=== PATIENT | female | born 1965 ===

== ENCOUNTER 2016-11-21 10:15 | Emergency (ER) | payer BC ==
[2016-11-21 11:02] LABS: BASO % 0.2 % (0.0-2.0); EOS % 0.2 % (0.0-4.0); HEMATOCRIT 44.1 % (34.0-47.0); LYMPH # 0.7 K/uL (1.0-4.3); LYMPH % 4.4 % (20.0-40.0); MEAN CELL VOLUME 69.7 fL (81.0-99.0); MEAN CORPUSCULAR HEMOGLOBIN 21.9 pg (27.0-31.0); MEAN CORPUSCULAR HGB CONC 31.5 g/dL (33.0-37.0); MONO # 0.6 K/uL (0.0-0.8); PLATELET COUNT 221 K/uL (130-400); RED CELL DISTRIBUTION WIDTH 14.7 % (11.5-14.5); WHITE BLOOD COUNT 15.1 K/uL (4.8-10.8)
[2016-11-21 11:04] LABS: CHLORIDE 102 mmol/L (98-107); SODIUM 142 mmol/L (132-148)
[2016-11-21 11:05] LABS: POTASSIUM 3.8 mmol/L (3.6-5.2)
[2016-11-21 11:07] LABS: ALB/GLOB RATIO 1.4 (1.0-2.1); ALKALINE PHOSPHATASE 119 U/L (38-126); ALT/SGPT 116 U/L (9-52); AST/SGOT 93 U/L (14-36); BILIRUBIN,TOTAL 0.9 mg/dL (0.2-1.3); BLOOD UREA NITROGEN 12 mg/dL (7-17); CALCIUM 9.1 mg/dl (8.6-10.4); CARBON DIOXIDE 24 mmol/L (22-30); GFR AFRICAN-AMERICAN > 60; GLUCOSE,RANDOM 103 mg/dL (65-105)
[2016-11-21 11:20] LABS: NEUTROPHIL 87 % (50-75); TOTAL CELLS COUNTED 100
--- NOTE | 2016-11-21 12:05 | C.PDOC ---
History Of Present Illness 51 y/o female presents to the ED with complains of nausea and several episodes of vomiting and diarrhea since this morning. Pt checked her blood pressure afterward, and states it was high. She took her HTN medications but initially vomited them up; however she then retook them and has been able to keep them down. Pt denies chest pain, SOB, fever, dysuria/hematuria, cough. Time Seen by Provider: 11/21/16 10:24 Chief Complaint (Nursing): High Blood Pressure History Per: Patient History/Exam Limitations: no limitations Onset/Duration Of Symptoms: Hrs Current Symptoms Are (Timing): Still Present Severity: Mild Recent travel outside of the [place]: No Past Medical History Reviewed: Historical Data, Nursing Documentation, Vital Signs Vital Signs: Last Vital Signs Temp 98.9 F 11/21/16 16:35 Pulse 74 11/21/16 16:35 Resp 19 11/21/16 16:35 BP 142/77 11/21/16 16:35 Pulse Ox 99 11/21/16 16:40 - Medical History PMH: HTN Family History: States: No Known Family Hx - Social History Hx Alcohol Use: No Hx Substance Use: No - Immunization History Hx Tetanus Toxoid Vaccination: No Hx Influenza Vaccination: No Review Of Systems Except As Marked, All Systems Reviewed And Found Negative. Constitutional: Negative for: Fever Cardiovascular: Negative for: Chest Pain Respiratory: Negative for: Cough, Shortness of Breath Gastrointestinal: Positive for: Nausea, Vomiting, Diarrhea. Negative for: Abdominal Pain Genitourinary: Negative for: Dysuria, Hematuria Skin: Negative for: Rash Physical Exam - Physical Exam Appears: Non-toxic, No Acute Distress, Other (nervous appearing) Skin: Warm, Dry, No Rash Head: Normacephalic Eye(s): bilateral: Normal Inspection Oral Mucosa: Moist Cardiovascular: Rhythm Regular, No Murmur Respiratory: Normal Breath Sounds, No Rales, No Rhonchi, No Wheezing Gastrointestinal/Abdominal: Bowel Sounds, Soft, Tenderness (mild epigastric TTP) , No Guarding, No Rebound, Other ((-) Callaway's, (-) McBurney's) Back: Normal Inspection, No CVA Tenderness Extremity: Normal ROM, No Pedal Edema, No Calf Tenderness Extremity: Bilateral: Atraumatic Neurological/Psych: Oriented x3 ED Course And Treatment - Laboratory Results Result Diagrams: 11/21/16 10:49 11/21/16 10:49 ECG: Interpreted By Me, Viewed By Me ECG Rhythm: Sinus Rhythm Interpretation Of ECG: Normal axis, RBBB, no acute ST/T wave changes Rate From EC (BPM) O2 Sat by Pulse Oximetry: 99 (on room air) Pulse Ox Interpretation: Normal - CT Scan/US ct scan abd/pelvis Other Rad Studies (CT/US): Read By Radiologist, Radiology Report Reviewed CT/US Interpretation: Accession No. : [id number]. Patient Name / ID : SARA HUFF / [id number]. Exam Date : 11/21/2016 15:45:01 ( Approved ). Study Comment : Sex / Age : F / 51Y. Creator : Domitila Blandon MD. Dictator : Domitila Blandon MD. Issuing Operator : Band Tumbler : Domitila Blandon MD. Approver2 : Report Date : 11/21/2016 16:13:21. My Comment : . PROCEDURE: CT Abdomen and Pelvis with contrast. HISTORY: NAUSEA, vomiting, ELEVATED LIPASE. COMPARISON: None available. TECHNIQUE: Contrast dose: 100 mL Visipaque. Radiation dose: Total exam DLP = 397.77 mGy-cm. This CT exam was performed using one or more of the following dose reduction techniques: Automated exposure control, adjustment of the mA and/or kV according to patient size, and/or use of iterative reconstruction technique. FINDINGS: LOWER THORAX: Mild bibasilar atelectasis. No visible pleural effusion or pneumothorax. LIVER: Unremarkable. GALLBLADDER AND BILE DUCTS: Unremarkable. PANCREAS: Unremarkable. SPLEEN: Unremarkable. ADRENALS: Unremarkable. KIDNEYS AND URETERS: The kidneys enhance symmetrically. No hydronephrosis or obstructing calculus. VASCULATURE: No aortic aneurysm. BOWEL: The stomach is incompletely distended. Lack of oral contrast limits evaluation for bowel pathology. Small bowel wall thickening involving portions of the duodenum and jejunum consistent with enteritis. Fluid-filled small and large bowel loops may be seen in the setting of diarrheal illness. APPENDIX: The appendix appears within normal limits of caliber. No secondary signs of acute appendicitis. PERITONEUM: No significant free fluid. No definite free air. LYMPH NODES: No bulky adenopathy identified. BLADDER: Unremarkable. REPRODUCTIVE: The uterus is present. BONES: No acute osseous abnormality is detected. OTHER FINDINGS: Tiny fat containing umbilical hernia. IMPRESSION: Small bowel wall thickening involving portions of the duodenum and jejunum consistent with enteritis. Fluid-filled small and large bowel loops may be seen in the setting of diarrheal illness. Progress Note: Plan: Blood work, EKG ordered and reviwed. Blood work shows leukocytosis with left shift and mild bandemia, and mildly elevated lipase. Ct scan abd/pelvis ordered. Reevaluation Time: 16:35 Reassessment Condition: Improved (On reassessment patient is resting comfortably and states she is feeling better. On exam, abdomen is soft and nontender. Ct scan shows enteritis, was otherwise unremarkable. Patient given Rxs for Cipro, Flagyl, Bentyl and Zofran ODT. Patient is comfortable being discharged home, and was instructed to follow up with PMD in 1 -2 days. She understands she should return to ED if symptoms worsen.) Disposition Counseled Patient/Family Regarding: Studies Performed, Diagnosis, Need For Followup, Rx Given - Disposition Referrals: Kavya Amaya MD [Staff Provider] - Disposition: HOME/ ROUTINE Disposition Time: 16:35 Condition: GOOD Additional Instructions: FOLLOW UP WITH YOUR DOCTOR IN 1-2 DAYS USE MEDICATIONS DIRECTED RETURN TO ER IF SYMPTOMS WORSEN Prescriptions: Dicyclomine [Bentyl] 20 mg PO Q6 PRN #12 tab PRN Reason: ABDOMINAL CRAMPING Ciprofloxacin [Cipro] 1 tab PO BID #14 tab metroNIDAZOLE [Flagyl] 500 mg PO TID #21 tab Ondansetron [Zofran Odt] 4 mg PO Q8 PRN #10 odt PRN Reason: Nausea/Vomiting Instructions: Enteritis (ED), Acute Nausea and Vomiting (ED) Print Language: TRINIDADIAN - POA Present On Arrival: None - Clinical Impression Clinical Impression: Enteritis, Elevated lipase, Nausea & vomiting - Scribe Statement The provider has reviewed the documentation as recorded by the Drew Prince Provider Attestation: All medical record entries made by the Drew were at my direction and personally dictated by me. I have reviewed the chart and agree that the record accurately reflects my personal performance of the history, physical exam, medical decision making, and the department course for this patient. I have also personally directed, reviewed, and agree with the discharge instructions and disposition.
[2016-11-21 13:53] LABS: RBC URINE 6 /hpf (0-3); URINE BILIRUBIN NEGATIVE (NEGATIVE); URINE BLOOD 1+ (NEGATIVE); URINE COLOR Yellow (YELLOW); URINE GLUCOSE (UA) NORMAL (Normal); URINE KETONE NEGATIVE (NEGATIVE); URINE LEUKOCYTE ESTERASE NEG Leu/uL (Negative); URINE PROTEIN NEGATIVE (NEGATIVE); URINE UROBILINOGEN NORMAL mg/dL (0.2-1.0)
[2016-11-21 15:19] VITALS: O2SAT 99
[2016-11-21] MEDS ORDERED: Iodixanol 320 mg/ml 150 ml Bottle IV ONE (15:32)
--- NOTE | 2016-11-21 16:14 | CT ---
PROCEDURE: CT Abdomen and Pelvis with contrast HISTORY: NAUSEA, vomiting, ELEVATED LIPASE COMPARISON: None available TECHNIQUE: Contrast dose: 100 mL Visipaque Radiation dose: Total exam DLP = 397.77 mGy-cm. This CT exam was performed using one or more of the following dose reduction techniques: Automated exposure control, adjustment of the mA and/or kV according to patient size, and/or use of iterative reconstruction technique. FINDINGS: LOWER THORAX: Mild bibasilar atelectasis. No visible pleural effusion or pneumothorax. LIVER: Unremarkable. GALLBLADDER AND BILE DUCTS: Unremarkable. PANCREAS: Unremarkable. SPLEEN: Unremarkable. ADRENALS: Unremarkable. KIDNEYS AND URETERS: The kidneys enhance symmetrically. No hydronephrosis or obstructing calculus. VASCULATURE: No aortic aneurysm. BOWEL: The stomach is incompletely distended. Lack of oral contrast limits evaluation for bowel pathology. Small bowel wall thickening involving portions of the duodenum and jejunum consistent with enteritis. Fluid-filled small and large bowel loops may be seen in the setting of diarrheal illness. APPENDIX: The appendix appears within normal limits of caliber. No secondary signs of acute appendicitis. PERITONEUM: No significant free fluid. No definite free air. LYMPH NODES: No bulky adenopathy identified. BLADDER: Unremarkable. REPRODUCTIVE: The uterus is present. BONES: No acute osseous abnormality is detected. OTHER FINDINGS: Tiny fat containing umbilical hernia. IMPRESSION: Small bowel wall thickening involving portions of the duodenum and jejunum consistent with enteritis. Fluid-filled small and large bowel loops may be seen in the setting of diarrheal illness.
[2016-11-21 16:40] VITALS: BP 142/77; PULSE 74; RESP 19; TEMP 98.9
--- NOTE | 2016-11-22 11:30 | CARD ---
APPROVED REPORT EKG Measurement Heart [id number] <Conclusion> Normal sinus rhythm Right bundle branch block Abnormal ECG
== END 2016-11-21 16:51 | disposition home or self-care (01) ==
LOC: C.ER 10:15
DX: K52.9 Noninfective gastroenteritis and colitis, unspecified (principal); R79.89 Other specified abnormal findings of blood chemistry; R11.2 Nausea with vomiting, unspecified
CPT/HCPCS: 74177; 80053; 81001; 83690; 84703; 85025; 87086; 93005; 96374; 99285; J2405; Q9965